=== PATIENT | male | born 1955 | race Caucasian/White ===

== ENCOUNTER 2018-02-02 12:11 | Emergency (ER) | payer OTHER ==
[2018-02-02 13:03] VITALS: BP 116/82
--- NOTE | 2018-02-02 13:19 | UC ---
Lower Extremity/Ankle HPI - HPI Summary HPI Summary: Patient presents with complaints of 2 day onset excessive fatigue, fever, chills and redness, swelling and pain of the right lower leg. He states the symptoms began when he was hiking with he dog, which he does often. He states he began to feel more tired than normal on the way back, he thought is was his allergies, he had to sit down because he became over whelmed. He states this was very unusual for him. Since he reports the above. He states he has pain, and warmth. Pain is constant, worse with walking, or to palpation. - History of Current Complaint Chief Complaint: UCSkin Stated Complaint: RASH Time Seen by Provider: 02/02/18 13:05 Hx Obtained From: Patient Onset/Duration: Gradual Onset, Lasting Days Severity Initially: Moderate Severity Currently: Moderate Pain Intensity: 8 Aggravating Factor(s): Ambulation Alleviating Factor(s): Rest Able to Bear Weight: Yes - Risk Factors Gout Risk Factors: Negative DVT Risk Factors: Negative Septic Arthritis Risk Factor: Negative - Allergies/Home Medications Allergies/Adverse Reactions: Allergies Allergy/AdvReac Type Severity Reaction Status Date / Time No Known Allergies Allergy Verified 02/02/18 13:04 Home Medications: Home Medications Atorvastatin* [Lipitor*] 10 mg PO 1700 02/02/18 [History Confirmed 02/02/18] Fluticasone NASAL SPRAY 50MCG* [Flonase NASAL SPRAY 50MCG*] 2 spray BOTH NARES DAILY 02/02/18 [History Confirmed 02/02/18] Hydrochlorothiazide TAB* [Hydrodiuril TAB*] 12.5 mg PO DAILY 02/02/18 [History Confirmed 02/02/18] Ramipril CAP* [Altace CAP*] 1.25 mg PO DAILY 02/02/18 [History Confirmed ] PMH/Surg Hx/FS Hx/Imm Hx Previously Healthy: Yes Endocrine History: Hypothyroidism, Dyslipidemia Cardiovascular History: Hypertension Respiratory History: Other Other Respiratory History: seasonal allergies, allergic rhinitis - Surgical History Surgical History: Yes Surgery Procedure, Year, and Place: hip replacement 2010,2009 - Family History Known Family History: Positive: None - Social History Occupation: Employed Full-time Lives: With Family Alcohol Amount: 6 pk beer Substance Use Type: None Smoking Status (MU): Former Smoker When Did the Patient Quit Smoking/Using Tobacco: 11 yrs ago - Immunization History Most Recent Tetanus Shot: 2017 Review of Systems Constitutional: Negative Skin: Negative Eyes: Negative ENT: Negative Respiratory: Negative Cardiovascular: Negative Gastrointestinal: Negative Genitourinary: Negative Motor: Negative Neurovascular: Negative Musculoskeletal: Other: - RLE; circumfrential erythema from ankle to knee. Palpation, warm to touch with tenderness. red streak noted medical upper thigh to groin. Neurological: Negative Psychological: Negative Is Patient Immunocompromised?: No All Other Systems Reviewed And Are Negative: Yes Physical Exam Triage Information Reviewed: Yes Appearance: Well-Appearing Vital Signs: Initial Vital Signs Temp 98.4 F 02/02/18 12:58 Pulse 103 02/02/18 12:58 Resp 16 02/02/18 12:58 BP 116/82 02/02/18 12:58 Pulse Ox 98 02/02/18 12:58 Vital Signs Reviewed: Yes Eye Exam: Normal ENT Exam: Normal Neck exam: Normal Neck: Positive: 1 Respiratory Exam: Normal Cardiovascular Exam: Normal Musculoskeletal Exam: Normal - RLE; circumfrential erythema from ankle to knee. Palpation, warmth and tenderness to touch. lymphagitis to groin., Other Neurological Exam: Normal Psychological Exam: Normal Skin Exam: Normal Lower Extremity Course/Dx - Course Course Of Treatment: Patient presents with early SIRS and associated circumfrential cellulitis of the RLE. He has noted lymphagitis to the right groin. Reported 2 day onset of fever, chills nd excessive fatigue.The patient was evaluated and needs higher level of care, was transferred directly to the ER. 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 Patient was well appearing and stable at the time of transfer. - Differential Dx/Diagnosis Provider Diagnoses: cellulitis Discharge - Sign-Out/Discharge Documenting (check all that apply): Discharge/Admit/Transfer - Discharge Plan Condition: Stable Disposition: TRANS [place] OF CARE FAC Patient Education Materials: Cellulitis (DC), Lymphangitis (ED) Referrals: Mariam Lopez MD [Primary Care Provider] - Additional Instructions: Go directly to the [facility] ER. - Billing Disposition and Condition Condition: STABLE Disposition: EMTALA
== END 2018-02-02 13:24 | disposition short-term general hospital (02) ==
LOC: UCEAST 12:11
DX: L03.115 Cellulitis of right lower limb (principal); E03.9 Hypothyroidism, unspecified; E78.5 Hyperlipidemia, unspecified; I10 Essential (primary) hypertension; J30.2 Other seasonal allergic rhinitis; Z96.649 Presence of unspecified artificial hip joint; Z87.891 Personal history of nicotine dependence
CPT/HCPCS: 99202; G0463

== ENCOUNTER 2018-02-02 13:38 | Observation (INO) | payer OTHER ==
[2018-02-02] MEDS ORDERED: Clindamycin 600 MG IVPREMIX(* 600 MG/50 ML SDV IV ONE (14:32)
[2018-02-02 14:53] LABS: ABS Basophils 0 10^3/ul (0-0.2); ABS Eosinophils 0 10^3/ul (0-0.6); ABS Lymphocytes 1.1 10^3/ul (1.0-4.8); ABS Monocytes 0.6 10^3/ul (0-0.8); ABS Neutrophils 7.1 10^3/ul (1.5-7.7); ABS Nucleated RBC 0 10^3/ul; Eosinophil % 0.1 % (0-6); Hematocrit 39 % (42-52); Hemoglobin 13.3 g/dl (14.0-18.0); Lymphocyte % 12.4 % (25-47); Mean Corpuscular HGB Conc 34 g/dl (31-36); Mean Corpuscular Hemoglobin 31 pg (27-31); Mean Corpuscular Volume 91 fL (80-94); Mean Platelet Volume 7.5 um3 (7.4-10.4); Nucleated Red Blood Cells % 0; Platelet Count 171 10^3/ul (150-450); Red Blood Count 4.29 10^6/ul (4.0-5.4); Red Cell Distribution Width 13 % (10.5-15); White Blood Count 8.8 10^3/ul (3.5-10.8)
[2018-02-02 15:05] LABS: INR 1.02 (0.77-1.02)
[2018-02-02 15:08] LABS: EGFR Non-African American 86.1 (>60)
[2018-02-02] MEDS ORDERED: Potassium Chlor TAB* 20 MEQ TAB.ER PO ONE (15:13)
--- NOTE | 2018-02-02 16:45 | RAD ---
INDICATION: Request for CT of the lower extremity for "rash". Pain and swelling COMPARISON: None TECHNIQUE: Noncontrast axial scans were obtained from the knee to the ankle. Coronal and sagittal reconstructed images were obtained FINDINGS: There are no focal osseous findings. The muscular elements appear normal. There is mild diffuse subcutaneous edema extending from the proximal tibia through the ankle with mild skin induration. There is no localized fluid collection to suggest organized abscess. There is no foreign body or other soft tissue abnormality. IMPRESSION: DIFFUSE SUBCUTANEOUS EDEMA AND SKIN INDURATION. NO LOCALIZED FLUID COLLECTION TO SUGGEST ABSCESS. NO FOREIGN BODY.
--- NOTE | 2018-02-02 17:02 | ED ---
Matias Ford Gabriel, scribed for Luis Miguel Stein on 02/02/18 at 1425 . Skin Complaint - HPI Summary HPI Summary: This patient is a 62 year old M presenting to [facility] accompanied by his partner with a chief complaint of a rash that is on his RLE that began last night. The patient describes the rash as painful, swollen, and spreading into his groin. The patient rates the pain 8/10 in severity. Pt was hiking on 01-31-18 when he began having fever, chills, LLE pain, and fatigue. NKDA. - History of Current Complaint Chief Complaint: EDRashSkinAbscess Time Seen by Provider: 02/02/18 14:08 Stated Complaint: RT LEG INFECTION/SENT FROM CC Hx Obtained From: Patient Onset/Duration: Still Present Onset Severity: Severe Current Severity: Severe Pain Intensity: 8 Pain Scale Used: 0-10 Numeric Skin Location: Leg, Other: - groin Character: Swelling, Pain, Redness Associated Signs & Symptoms: Fever, Chills - Allergy/Home Medications Allergies/Adverse Reactions: Allergies Allergy/AdvReac Type Severity Reaction Status Date / Time No Known Allergies Allergy Verified 02/02/18 13:48 Home Medications: Home Medications Fexofenadine (NF) [Chio 180 (NF)] 180 mg PO DAILY 02/02/18 [History Confirmed 02/02/18] Ramipril CAP* [Altace CAP*] 5 mg PO DAILY 02/02/18 [History Confirmed 02/02/18] PMH/Surg Hx/FS Hx/Imm Hx Endocrine/Hematology History: Denies: Hx Diabetes, Hx Thyroid Disease Cardiovascular History: Denies: Hx Hypertension Respiratory History: Denies: Hx Asthma, Hx Chronic Obstructive Pulmonary Disease (COPD) GI History: Denies: Hx Gall Bladder Disease, Hx Ulcer - Surgical History Surgery Procedure, Year, and Place: hip replacement 2010,2009 Infectious Disease History: No Infectious Disease History: Denies: Hx Hepatitis, Hx Human Immunodeficiency Virus (HIV), Traveled Outside the [place] in Last 30 Days - Family History Known Family History: Positive: None Negative: Renal Disease, Respiratory Disease, Seizure Disorder - Social History Alcohol Use: Daily Alcohol Amount: 6 pk beer Substance Use Type: Reports: None Smoking Status (MU): Former Smoker Review of Systems Positive: Fever, Chills, Fatigue Positive: Other - RLE pain Positive: Rash All Other Systems Reviewed And Are Negative: Yes Physical Exam - Summary Physical Exam Summary: Appearance: Well appearing, no pain distress Skin: erythema that in the RLE that is TTP, red streaking up the thigh Head/face: normal Eyes: EOMI, NATA ENT: normal Neck: supple, non-tender Respiratory: CTA, breath sounds present Cardiovascular: RRR, pulses symmetrical Abdomen: non-tender, soft Bowel: present Musculoskeletal: normal, strength/ROM intact Neuro: normal, sensory motor intact, A&Ox3 Triage Information Reviewed: Yes Vital Signs On Initial Exam: Initial Vitals Temp Pulse Resp BP Pulse Ox 98.9 F 103 18 132/100 96 02/02/18 13:44 02/02/18 13:44 02/02/18 13:44 02/02/18 13:44 02/02/18 13:44 Vital Signs Reviewed: Yes Diagnostics - Vital Signs Vital Signs Temp Pulse Resp BP Pulse Ox 02/02/18 13:44 98.9 F 103 18 132/100 96 - Laboratory Lab Results: Lab Results 02/02/18 02/02/18 02/02/18 Range/Units 14:41 14:41 14:41 WBC 8.8 (3.5-10.8) 10^3/ul RBC 4.29 (4.0-5.4) 10^6/ul Hgb 13.3 L (14.0-18.0) g/dl Hct 39 L (42-52) % MCV 91 (80-94) fL MCH 31 (27-31) pg MCHC 34 (31-36) g/dl RDW 13 (10.5-15) % Plt Count 171 (150-450) 10^3/ul MPV 7.5 (7.4-10.4) um3 Neut % (Auto) 80.1 (38-83) % Lymph % (Auto) 12.4 L (25-47) % [place] % (Auto) 7.0 (0-7) % Eos % (Auto) 0.1 (0-6) % Baso % (Auto) 0.4 (0-2) % Absolute Neuts (auto) 7.1 (1.5-7.7) 10^3/ul Absolute Lymphs (auto) 1.1 (1.0-4.8) 10^3/ul Absolute Monos (auto) 0.6 (0-0.8) 10^3/ul Absolute Eos (auto) 0 (0-0.6) 10^3/ul Absolute Basos (auto) 0 (0-0.2) 10^3/ul Absolute Nucleated RBC 0 10^3/ul Nucleated RBC % 0 ESR Pending INR (Anticoag Therapy) 1.02 (0.77-1.02) APTT 30.3 (26.0-36.3) seconds Sodium 132 L (139-145) mmol/L Potassium 3.3 L (3.5-5.0) mmol/L Chloride 100 L (101-111) mmol/L Carbon Dioxide 25 (22-32) mmol/L Anion Gap 7 (2-11) mmol/L BUN 15 (6-24) mg/dL Creatinine 0.90 (0.67-1.17) mg/dL Est GFR ( Amer) 110.7 (>60) Est GFR (Non-Af Amer) 86.1 (>60) BUN/Creatinine Ratio 16.7 (8-20) Glucose 101 H (70-100) mg/dL Lactic Acid (0.5-2.0) mmol/L Calcium 8.9 (8.6-10.3) mg/dL Total Bilirubin 0.40 (0.2-1.0) mg/dL AST 27 (13-39) U/L ALT 24 (7-52) U/L Alkaline Phosphatase 74 (34-104) U/L C-Reactive Protein Pending Total Protein 7.2 (6.4-8.9) g/dL Albumin 3.7 (3.2-5.2) g/dL Globulin 3.5 (2-4) g/dL Albumin/Globulin Ratio 1.1 (1-3) // Range/Units 14:41 WBC (3.5-10.8) 10^3/ul RBC (4.0-5.4) 10^6/ul Hgb (14.0-18.0) g/dl Hct (42-52) % MCV (80-94) fL MCH (27-31) pg MCHC (31-36) g/dl RDW (10.5-15) % Plt Count (150-450) 10^3/ul MPV (7.4-10.4) um3 Neut % (Auto) (38-83) % Lymph % (Auto) (25-47) % [place] % (Auto) (0-7) % Eos % (Auto) (0-6) % Baso % (Auto) (0-2) % Absolute Neuts (auto) (1.5-7.7) 10^3/ul Absolute Lymphs (auto) (1.0-4.8) 10^3/ul Absolute Monos (auto) (0-0.8) 10^3/ul Absolute Eos (auto) (0-0.6) 10^3/ul Absolute Basos (auto) (0-0.2) 10^3/ul Absolute Nucleated RBC 10^3/ul Nucleated RBC % ESR INR (Anticoag Therapy) (0.77-1.02) APTT (26.0-36.3) seconds Sodium (139-145) mmol/L Potassium (3.5-5.0) mmol/L Chloride (101-111) mmol/L Carbon Dioxide (22-32) mmol/L Anion Gap (2-11) mmol/L BUN (6-24) mg/dL Creatinine (0.67-1.17) mg/dL Est GFR ( Amer) (>60) Est GFR (Non-Af Amer) (>60) BUN/Creatinine Ratio (8-20) Glucose (70-100) mg/dL Lactic Acid 1.0 (0.5-2.0) mmol/L Calcium (8.6-10.3) mg/dL Total Bilirubin (0.2-1.0) mg/dL AST (13-39) U/L ALT (7-52) U/L Alkaline Phosphatase (34-104) U/L C-Reactive Protein Total Protein (6.4-8.9) g/dL Albumin (3.2-5.2) g/dL Globulin (2-4) g/dL Albumin/Globulin Ratio (1-3) Result Diagrams: 02/02/18 14:41 02/02/18 14:41 Lab Statement: Any lab studies that have been ordered have been reviewed, and results considered in the medical decision making process. Course/Dx - Course Assessment/Plan: This patient is a 62 year old M presenting to [facility] accompanied by his partner with a chief complaint of a rash that is on his RLE that began last night. The patient describes the rash as painful, swollen, and spreading into his groin. The patient rates the pain 8/10 in severity. Pt was hiking on 01-31-18 when he began having fever, chills, RLE pain, and fatigue. NKDA. Blood test obtained. In the ED course the patient was given clinda and potassium. Dx cellulitis. We discussed patient care with Dr. Swift and they accepted the patient for admission. Patient will be admitted. The patient is agreeable with this plan. - Differential Diagnoses - Skin Complaint Differential Diagnoses: Cellulitis, Eczema, Poison Sen[place], Urticaria - Diagnoses Provider Diagnoses: Cellulitis - Physician Notifications Discussed Care Of Patient With: Mone Swift Time Discussed With Above Provider: 15:20 Instructed by Provider To: Admit As Inpatient Discharge - Sign-Out/Discharge Documenting (check all that apply): Discharge/Admit/Transfer - admitted to Dr. Swift - Discharge Plan Condition: Fair Disposition: ADMITTED TO [facility] Referrals: Mariam Lopez MD [Primary Care Provider] - - Billing Disposition and Condition Condition: FAIR [place] [facility] [place] The documentation as recorded by the Matias renner Gabriel accurately reflects the service I personally performed and the decisions made by Sarita flores Emmanuel.
[2018-02-02] MEDS ORDERED: traMADol TAB* 50 MG PO PRN (17:23)
[2018-02-02] MEDS ORDERED: diPHENhydraMINE PO* 25 MG PO PRN (17:31)
[2018-02-02 18:20] LABS: EGFR Non-African American 97.2 (>60)
[2018-02-02] MEDS: Pregabalin CAP(*) 50 MG PO SCH ×2 (20:24→20:36)
[2018-02-02] MEDS: predniSONE TAB* 20 MG PO SCH (20:24)
[2018-02-02] MEDS: Heparin VIAL(*) 5000 UNITS/ML VIAL (FIVE THOUSAND) SUBCUT SCH (20:26)
--- NOTE | 2018-02-02 20:32 | HP ---
AMENDED REPORT NOW INCLUDES COSIGNER DESIGNATION - ESIGNED BEFORE ADJUSTMENT CC: Dr. Lopez * ADMISSION HISTORY AND PHYSICAL: DATE OF ADMISSION: 02/02/18 PRIMARY CARE PHYSICIAN: Dr. Mariam Lopez. ATTENDING PHYSICIAN: Mone Swift DO * (DICTATED BY EKATERINA HAILE NP) CHIEF COMPLAINT: Right lower extremity pain and redness. HISTORY OF PRESENT ILLNESS: This is a very pleasant 62-year-old male patient, who reported he was in his usual state of health when hiking on Saturday and noticed that he felt some fatigue and malaise when he got home and became very tired, had some subjective chills. He thought he had a fever, although he did not measure his temperature. The patient assumed that he was coming down with something and went to bed to try to rest. The patient tried to get through the next day and started having advancing pain in the right lower extremity and then the last night noticed that the anterior portion of his right weir became red and very painful with ambulation. The patient went to the urgent care and was subsequently referred to the emergency department for additional evaluation. ER physician had seen the patient and requested evaluation for admission for a complex cellulitis. However, upon examination, the patient does not appear to be cellulitic in nature in the traditional sense. He does appear to have more of a vascular rash; however, without a clear etiology we feel it is warranted to at least admit the patient for observation and do some additional diagnostics and lab work and see if we can ascertain the etiology of this rash and pain. PAST MEDICAL HISTORY: Significant only for hypertension. PAST SURGICAL HISTORY: Includes total hip arthroplasty, right and left in 2009 and 2010. MEDICATIONS: At home include: 1. Ramipril 5 mg p.o. daily. 2. Chio 180 mg p.o. daily. ALLERGIES: No known drug allergies. FAMILY HISTORY: Noncontributory. SOCIAL HISTORY: The patient denies smoking at this time. He does have remote history of smoking, quit approximately 10 years ago. He does drink a 6-pack of beer per day. Denies any illicit drug use. The patient is a full code and his healthcare proxy is a significant other, who is at the bedside. Her name and contact information are on the chart. REVIEW OF SYSTEMS: The patient is not complaining of fever, fatigue or chills at this time. Denies any chest pain. No shortness of breath. No nausea. No vomiting. No diarrhea. He does have some generalized muscle aches and itching to the right lower extremity. No calf tenderness, but does report pain with ambulation or with weightbearing on the affected side. No further constitutional complaints. PHYSICAL EXAMINATION VITAL SIGNS: Currently, blood pressure 105/61, heart rate 81, respiratory rate 16, O2 saturation 96% on room air, temperature is 100.8. HEENT: The patient is atraumatic, normocephalic. PERRLA with nonicteric sclerae. Extraocular movements are intact. Oral mucosa is moist. Tongue is midline. NECK: Supple, nontender. No JVD noted. No carotid bruit auscultated. LUNGS: Clear bilaterally to auscultation with no wheezing, rhonchi or rales. CARDIOVASCULAR: S1, S2 are present. Rate and rhythm are regular. No murmurs, gallops or rubs noted. ABDOMEN: Soft, nontender, and nondistended. Positive bowel sounds in all 4 quadrants. No organomegaly noted. : Deferred. MUSCULOSKELETAL: There is no clubbing and no cyanosis. He has minimal edema to the right lower extremity. He has brisk cap refill and a +2 distal pulse. Skin is extremely erythematous, does not appear to be excoriated. There is no exudate noted. No fluctuance. It is nonblanching and has sharp margins. He also has a milder erythema, which is blanching on the right medial thigh, but it does not appear to be attached to the rash that is below the knee. NEUROLOGIC: He is grossly intact with no focal deficits. PSYCHIATRIC: He is cooperative and appropriate. DIAGNOSTIC STUDIES/LAB DATA: WBC is 8.8, RBC is 4.29, hemoglobin 13.3, hematocrit 39, platelets 171,000. ESR is 64. Sodium 133, potassium 3.3, chloride 100, glucose 101, lactic acid 1.0, BUN 14, creatinine 0.81, GFR is 97.2 , calcium 8.9, CRP is 181.33. Rheumatoid factor is 11. INR 1.02. Imaging: CAT scan of the right lower extremity dated today shows diffuse subcutaneous edema and skin induration with no localized fluid collection to suggest abscess and no foreign body. IMPRESSION: This is a 62-year-old male patient with minimal medical history. He reports he was in his usual state of health until he was hiking this weekend and now presents with a vascular type rash of the right lower extremity, etiology unclear. DIAGNOSES: 1. Right lower extremity rash, cellulitis versus vasculitis. 2. History of hypertension. 3. Mild fever. 4. Increased inflammatory markers. PLAN: The patient has been admitted to observation service. He has already received one dose of clindamycin 600 mg in the emergency department. This will be continued. Initially when he presented, he was afebrile; however, he does have low grade temperature right now. We will continue to monitor him for SIRS criteria. His blood pressure and heart rate are currently stable. We will continue his clindamycin. He has also received a loading dose of prednisone 60 mg. He can have Benadryl 25 mg q.6 hours as needed for itching. We will continue his ramipril for his hypertension. At this point, I think it would be prudent to try to obtain a skin biopsy; however, I do not think we have pathology on service this weekend. If the vasculitis seems to be getting worse , we will reach out for skin biopsy sooner rather than later. However, if he responds to the current treatment, we may hold off on this. Also if Dr. Jenkins is available at some point this weekend, we may also ask him to advise in further care. The rest of the patient's course will be determined by further diagnostics, laboratories and any other inputs from other providers as warranted during this admission. For DVT prophylaxis, the patient will have heparin 5000 q.8 hours. TIME SEEN: I spent an excess of 90 minutes on this admission evaluating the patient, discussing the case with other members of the team including my attending, the ER physician, and recheck to Infectious Disease. EKATERINA HAILE, SALOM[place] [id number]/[facility] #: [id number] DE[place]E
[2018-02-02] MEDS: DOXYcycline CAP(*) 100 MG PO SCH (22:48)
[2018-02-02] MEDS ORDERED: Clindamycin 600 MG IVPREMIX(* 600 MG/50 ML SDV IV SCH (23:00)
[2018-02-03 05:27] LABS: ABS Basophils 0 10^3/ul (0-0.2); ABS Eosinophils 0 10^3/ul (0-0.6); ABS Lymphocytes 0.5 10^3/ul (1.0-4.8); ABS Monocytes 0.3 10^3/ul (0-0.8); ABS Neutrophils 7.3 10^3/ul (1.5-7.7); ABS Nucleated RBC 0 10^3/ul; Eosinophil % 0 % (0-6); Hematocrit 40 % (42-52); Hemoglobin 13.6 g/dl (14.0-18.0); Lymphocyte % 6.7 % (25-47); Mean Corpuscular HGB Conc 34 g/dl (31-36); Mean Corpuscular Hemoglobin 31 pg (27-31); Mean Corpuscular Volume 92 fL (80-94); Mean Platelet Volume 7.6 um3 (7.4-10.4); Nucleated Red Blood Cells % 0; Platelet Count 180 10^3/ul (150-450); Red Blood Count 4.38 10^6/ul (4.0-5.4); Red Cell Distribution Width 13 % (10.5-15); White Blood Count 8.2 10^3/ul (3.5-10.8)
[2018-02-03] MEDS: Heparin VIAL(*) 5000 UNITS/ML VIAL (FIVE THOUSAND) SUBCUT SCH (05:36)
[2018-02-03] MEDS: Pregabalin CAP(*) 50 MG PO SCH (08:22)
[2018-02-03] MEDS: predniSONE TAB* 20 MG PO SCH (08:22)
[2018-02-03] MEDS: DOXYcycline CAP(*) 100 MG PO SCH (08:22)
--- NOTE | 2018-02-03 08:22 | PN ---
Subjective Date of Service: 02/03/18 Interval History: Patient reports he feels much better today. Denies fever or chills. Feels that his fatigue has resolved and he is back to his baseline. His RLE continues to be red but states it is not as dark red. Denies itching, reports mild pain to palpation. Objective Active Medications: Diphenhydramine HCl (Benadryl Po*) 25 mg PO Q6H PRN PRN Reason: PRURITIS Doxycycline Hyclate (Vibramycin Cap(*)) 100 mg PO BID [facility] Last Admin: 02/02/18 22:48 Dose: 100 mg Heparin Sodium (Porcine) (Heparin Vial(*)) 5,000 units SUBCUT Q8HR [facility] Last Admin: 02/03/18 05:36 Dose: 5,000 units Prednisone (Deltasone Tab*) 60 mg PO DAILY [facility] Last Admin: 02/02/18 20:24 Dose: 60 mg Pregabalin (Lyrica Cap(*)) 50 mg PO TID [facility] Last Admin: 02/02/18 20:36 Dose: Not Given Tramadol HCl (Ultram*) 50 mg PO Q6H PRN PRN Reason: PAIN Vital Signs - 8 hr 02/03/18 02/03/18 02/03/18 03:18 05:45 07:29 Temperature 98.1 F 97.6 F Pulse Rate 66 62 Respiratory 16 16 Rate Blood Pressure 93/58 105/62 119/72 (mmHg) O2 Sat by Pulse 97 98 Oximetry Oxygen Devices in Use Now: None Appearance: 62 yo well developed male A+O x3 in NAD Eyes: No Scleral Icterus, PERRLA Ears/Nose/Mouth/Throat: NL Teeth, Lips, Gums, Clear Oropharnyx, Mucous Membranes Moist Respiratory: Symmetrical Chest Expansion and Respiratory Effort, Clear to Auscultation Cardiovascular: NL Sounds; No Murmurs; No JVD, RRR, No Edema Abdominal: NL Sounds; No Tenderness; No Distention Lymphatic: No Cervical Adenopathy Extremities: No Edema, No Clubbing, Cyanosis Skin: - - RLE has large area of erythema blanchable in some areas, diffuse edges , on the interior aspect of the erythema there is a patch of small raise bumps Neurological: Alert and Oriented x 3, NL Sensation, NL Gait, NL Muscle Strength and Tone Lines/Tubes/Other Access: Clean, Dry and Intact Peripheral IV Nutrition: Taking PO's Result Diagrams: 02/03/18 05:19 02/02/18 17:54 Additional Lab and Data: Lab Results 02/02/18 02/02/18 02/02/18 Range/Units 14:41 14:41 14:41 WBC 8.8 (3.5-10.8) 10^3/ul RBC 4.29 (4.0-5.4) 10^6/ul Hgb 13.3 L (14.0-18.0) g/dl Hct 39 L (42-52) % MCV 91 (80-94) fL MCH 31 (27-31) pg MCHC 34 (31-36) g/dl RDW 13 (10.5-15) % Plt Count 171 (150-450) 10^3/ul MPV 7.5 (7.4-10.4) um3 Neut % (Auto) 80.1 (38-83) % Lymph % (Auto) 12.4 L (25-47) % Briscoe % (Auto) 7.0 (0-7) % Eos % (Auto) 0.1 (0-6) % Baso % (Auto) 0.4 (0-2) % Absolute Neuts (auto) 7.1 (1.5-7.7) 10^3/ul Absolute Lymphs (auto) 1.1 (1.0-4.8) 10^3/ul Absolute Monos (auto) 0.6 (0-0.8) 10^3/ul Absolute Eos (auto) 0 (0-0.6) 10^3/ul Absolute Basos (auto) 0 (0-0.2) 10^3/ul Absolute Nucleated RBC 0 10^3/ul Nucleated RBC % 0 ESR Pending INR (Anticoag Therapy) 1.02 (0.77-1.02) APTT 30.3 (26.0-36.3) seconds Sodium 132 L (139-145) mmol/L Potassium 3.3 L (3.5-5.0) mmol/L Chloride 100 L (101-111) mmol/L Carbon Dioxide 25 (22-32) mmol/L Anion Gap 7 (2-11) mmol/L BUN 15 (6-24) mg/dL Creatinine 0.90 (0.67-1.17) mg/dL Est GFR ( Amer) 110.7 (>60) Est GFR (Non-Af Amer) 86.1 (>60) BUN/Creatinine Ratio 16.7 (8-20) Glucose 101 H (70-100) mg/dL Lactic Acid (0.5-2.0) mmol/L Calcium 8.9 (8.6-10.3) mg/dL Total Bilirubin 0.40 (0.2-1.0) mg/dL AST 27 (13-39) U/L ALT 24 (7-52) U/L Alkaline Phosphatase 74 (34-104) U/L C-Reactive Protein Pending Total Protein 7.2 (6.4-8.9) g/dL Albumin 3.7 (3.2-5.2) g/dL Globulin 3.5 (2-4) g/dL Albumin/Globulin Ratio 1.1 (1-3) 05// Range/Units 14:41 WBC (3.5-10.8) 10^3/ul RBC (4.0-5.4) 10^6/ul Hgb (14.0-18.0) g/dl Hct (42-52) % MCV (80-94) fL MCH (27-31) pg MCHC (31-36) g/dl RDW (10.5-15) % Plt Count (150-450) 10^3/ul MPV (7.4-10.4) um3 Neut % (Auto) (38-83) % Lymph % (Auto) (25-47) % Briscoe % (Auto) (0-7) % Eos % (Auto) (0-6) % Baso % (Auto) (0-2) % Absolute Neuts (auto) (1.5-7.7) 10^3/ul Absolute Lymphs (auto) (1.0-4.8) 10^3/ul Absolute Monos (auto) (0-0.8) 10^3/ul Absolute Eos (auto) (0-0.6) 10^3/ul Absolute Basos (auto) (0-0.2) 10^3/ul Absolute Nucleated RBC 10^3/ul Nucleated RBC % ESR INR (Anticoag Therapy) (0.77-1.02) APTT (26.0-36.3) seconds Sodium (139-145) mmol/L Potassium (3.5-5.0) mmol/L Chloride (101-111) mmol/L Carbon Dioxide (22-32) mmol/L Anion Gap (2-11) mmol/L BUN (6-24) mg/dL Creatinine (0.67-1.17) mg/dL Est GFR ( Amer) (>60) Est GFR (Non-Af Amer) (>60) BUN/Creatinine Ratio (8-20) Glucose (70-100) mg/dL Lactic Acid 1.0 (0.5-2.0) mmol/L Calcium (8.6-10.3) mg/dL Total Bilirubin (0.2-1.0) mg/dL AST (13-39) U/L ALT (7-52) U/L Alkaline Phosphatase (34-104) U/L C-Reactive Protein Total Protein (6.4-8.9) g/dL Albumin (3.2-5.2) g/dL Globulin (2-4) g/dL Albumin/Globulin Ratio (1-3) Assess/Plan/Problems-Billing Assessment: Mr. Bain is a 62 yo male with a PMh of HTN, hypothyroid, HLD who presented to the emergency department on 02/02 with c/o right lower extremity pain and redness. - Patient Problems (1) Cellulitis Comment: - appears to be a cellulitis. Attending Dr. Ibrahim evaluated leg and agrees. Ok to DC to home on oral Doxy. As well admitting [employer] SALES [employer]IST Hyacinth re-evaluated leg this am and reports it looks improved. - F/u with PCP this week and ID as outpt this week - CRP trending down. No leukocytosis. Afebrile. (2) HTN (hypertension) Comment: -continue home meds (3) HLD (hyperlipidemia) Comment: - continue statin (4) Hypothyroid Comment: - TSH 0.8, reduce synthroid - follow up with PCP and recheck Thyroid panel in 4 weeks (5) DVT prophylaxis Comment: HSQ (6) Full code status Status and Disposition: Plan for DC to home today.
[2018-02-03] MEDS ORDERED: Levothyroxine TAB* 100 MCG TAB PO SCH (08:30)
[2018-02-03] MEDS ORDERED: NS 0.9% 1000 ML* 1,000 ML IV SCH (08:30)
[2018-02-03] MEDS ORDERED: Atorvastatin* 10 MG TAB PO SCH (09:00)
[2018-02-03] MEDS ORDERED: Potassium Chlor TAB* 20 MEQ TAB.ER PO SCH (09:00)
[2018-02-03] MEDS ORDERED: Ramipril CAP* 5 MG PO SCH (09:00)
[2018-02-03] MEDS ORDERED: Fluticasone NASAL SPRAY 50MCG* 16 gm SPRAY BTL BOTH NARES SCH (09:00)
[2018-02-03] MEDS ORDERED: Hydrochlorothiazide TAB* 25 MG PO SCH (09:00)
[2018-02-03 11:12] VITALS: BP 132/69
--- NOTE | 2018-02-03 23:35 | DS ---
CC: Dr. Mariam Lopez * DISCHARGE SUMMARY: DATE OF ADMISSION: 02/02/18 DATE OF DISCHARGE: 02/03/18 PROVIDER: Amelia Ty NP ATTENDING PHYSICIAN: Dr. Ibrahim * (report dictated by Amelia Ty NP). PRIMARY CARE PROVIDER: Dr. Mariam Lopez. REFERRING TO: Dr. John Jenkins, Infectious Disease. DISCHARGE DIAGNOSIS: Cellulitis. SECONDARY DIAGNOSES: 1. Hypertension. 2. Hypothyroidism, Nivia's. 3. Hyperlipidemia. HISTORY OF PRESENT ILLNESS AND HOSPITAL COURSE: Please see history and physical by Jannette Claros NP, for full admission details, but in summary this is a 62- year-old male who presented to the emergency department on 02/02/18 with complaint of right lower extremity pain and redness. The patient reports that he was hiking on Saturday, three days ago, when he felt some fatigue and malaise and he went home. He reported possible chills. He assumed he was coming down on something and went to bed to rest. He denies any fevers at that time. The next day, the patient awoke still feeling under the weather and he had advancing pain in his right lower extremity and noticed on Saturday evening the lower anterior portion of his right weir became very red and painful with ambulation. The patient went to urgent care today and was referred to the emergency department for further evaluation. Initially, on admission, it was due to the beefy redness of the area and which was found to be nonblanching with sharp margins. It was thought that it was a possible vasculitis; however, today, on evaluation, it appears to be more like a cellulitis with blanchable areas and diffuse borders. In the emergency department, he was initially given clindamycin IV, then switched to doxycycline p.o. last evening. His initial CRP was 181.33, which is trending down today at 169. His ESR is also elevated at 64. He has had no leukocytosis and has remained afebrile. On admission, he did have a noted low- grade temp of 100.8. The patient also underwent testing for hepatitis C, which was negative; and HIV 1 and 2 antibodies are currently pending at the time of dictation. Rheumatoid factor is normal. I asked the attending physician, Dr. Ibrahim, to evaluate the patient's right lower extremity today and he agrees that this appears to be more cellulitic in nature. The patient has improved on doxycycline and would like to go home. The patient appears well and is stable for discharge home today with followup with Infectious Disease, Dr. Jenkins, this week. In regard to the patient's history of Nivia hypothyroidism, his thyroid panel was checked and he is noted to have a low TSH of 0.08, a free T4 of 1.22, and a total T3 of 0.64. He reports that his Synthroid was recently increased several months ago and he has not had any new testing. At this time, we will lower his Synthroid to 100 mcg and have him follow up with his primary this week and should be retested in 2 to 4 weeks. He reports he is very sensitive to when his TSH is high and he is hypothyroidism and currently reports that he feels really good. He denies any palpitations, weight loss, sweating, or insomnia. He feels per his thyroid level that he is at a good point. However, we did discuss that he is now hyperthyroidism and he needs to decrease his medication. The patient was instructed to return to the emergency department with any worsening or concerning symptoms. He is stable for discharge to home. DISCHARGE MEDICATIONS: 1. Ramipril 5 mg p.o. daily. 2. Hydrochlorothiazide 12.5 mg p.o. daily. 3. Flonase 50 mcg 2 sprays both nares daily. 4. Chio 180 mg p.o. daily. 5. Lipitor 10 mg p.o. daily. 6. Synthroid 100 mcg p.o. daily. 7. Doxycycline 100 mg p.o. b.i.d. DISCHARGE PLAN: 1. The patient is instructed to call Dr. John Jenkins's office tomorrow morning for followup this week. 2. Follow up with primary care provider within 1 week; and as stated above, the patient's TSH was noted to be low and his thyroid medication was decreased, he should have a thyroid panel followup in the near future for further adjustment and monitoring. 3. The patient was instructed to return to the emergency department with any worsening or concerning symptoms. TIME SPENT: Approximately 60 minutes was spent on this discharge. This case was discussed with the attending physician, Dr. Ibrahim, who agrees with the plan of care. AMELIA TY, CANOE MAKER [id number]/[facility] #: [id number] [facility]ALSolomon
== END 2018-02-03 13:30 | disposition home or self-care (01) ==
LOC: ED 13:38 → MED 17:17
PROVIDERS: ADMIT Internal Medicine; ATTEND Student in an Organized Health Care Education/Training Program
DX: L03.90 Cellulitis, unspecified (principal); I10 Essential (primary) hypertension; E03.9 Hypothyroidism, unspecified; E87.5 Hyperkalemia; E06.3 Autoimmune thyroiditis; R50.9 Fever, unspecified; R53.83 Other fatigue; R21 Rash and other nonspecific skin eruption; Z87.891 Personal history of nicotine dependence
CPT/HCPCS: 36415; 80048; 80053; 82595; 83516; 83605; 83735; 84439; 84443; 84479; 85025; 85610; 85652; 85730; 86038; 86140; 86160; 86431; 86703; 86803; 87040; 87476; 87798; 96374; 99284; A9270-GY; G0378; J1644; J7512